=== PATIENT | male | born 1955 | race Caucasian/White ===

== ENCOUNTER → 2022-10-06 | Outpatient (CLI) | payer MEDICARE, OTHER ==
[2022-10-06 15:44] LABS: FREE T4 1.04 NG/DL (0.89-1.76); THYROID STIMULATING HORMONE 2.358 uIU/ML (0.55-4.78)
== END ==
LOC: M PLALAB 11:13
PROVIDERS: ATTEND Surgery
DX: N63.20 Unspecified lump in the left breast, unspecified quadrant (principal); Z79.899 Other long term (current) drug therapy

== ENCOUNTER → 2022-10-18 | Outpatient (REF) | payer MEDICARE, OTHER | LOC: M RAD 14:30 | PROVIDERS: ATTEND Surgery | DX: N62 Hypertrophy of breast (principal) ==

== ENCOUNTER → 2023-07-01 | Outpatient (CLI) | payer MEDICARE, OTHER ==
[~2023-07-01] MED LIST: ISOVUE-370 76% 100ML VIAL ONE
== END ==
LOC: M PLAIMG 08:56
PROVIDERS: ATTEND Otolaryngology
DX: R07.0 Pain in throat (principal)
CPT/HCPCS: 70491; Q9967

== ENCOUNTER → 2023-07-05 | Outpatient (CLI) | payer MEDICARE, OTHER ==
[~2023-07-05] MED LIST changes: +E-Z-GAS II EFFERVESCENT PACKET (SODIUM BICARB./CITRIC ACID/SIMETHICONE) As Ordered ONE; +E-Z-HD 98% w/w 340GM SUSP BTL As Ordered ONE; +E-Z-PAQUE 96% w/w SUSP 176GM BTL As Ordered ONE; -ISOVUE-370 76% 100ML VIAL ONE
== END ==
LOC: M RAD 10:02
PROVIDERS: ATTEND Otolaryngology
DX: R07.0 Pain in throat (principal)